=== PATIENT | female | born 1960 | race Caucasian/White ===

== ENCOUNTER → 2016-10-25 | Outpatient (CLI) | payer MEDICAID ==
[~2016-10-25] MED LIST: LISI-167 PO
== END | disposition home or self-care (01) ==
LOC: RAD 11:33
PROVIDERS: ATTEND Physician Assistant
DX: M47.893 Other spondylosis, cervicothoracic region (principal); Z98.1 Arthrodesis status
CPT/HCPCS: 72040

== ENCOUNTER → 2017-09-02 | Outpatient (CLI) | payer MEDICAID | END | disposition home or self-care (01) | LOC: RAD 10:27 | PROVIDERS: ATTEND Physician Assistant | DX: M43.12 Spondylolisthesis, cervical region (principal) | CPT/HCPCS: 72050 ==

== ENCOUNTER → 2017-09-09 | Outpatient (CLI) | payer MEDICAID | LOC: CFH 09:54 | PROVIDERS: ATTEND Physician Assistant Medical | DX: Z12.31 Encounter for screening mammogram for malignant neoplasm of breast (principal); N60.02 Solitary cyst of left breast | CPT/HCPCS: 77067 ==

== ENCOUNTER 2019-07-12 16:53 | Emergency (ER) | payer MEDICAID ==
[~2019-07-12] VITALS: Ht 170.2 cm; Wt 54.7 kg
[2019-07-12 17:12] VITALS: BP 146/101
[2019-07-12] MEDS ORDERED: METHOCARBAMOL 500 MG TABLET PO ONE (17:30)
[2019-07-12] MEDS ORDERED: METHOCARBAMOL 500 MG TABLET ONE (17:35)
--- NOTE | 2019-07-12 17:38 | NUR ---
PT HERE WITH C/O NECK PAIN. PT MEDICATED PER ORDER AND TAKEN TO RADIOLOGY.
--- NOTE | 2019-07-12 17:56 | NUR ---
PT BACK FROM RADIOLOGY.
--- NOTE | 2019-07-12 18:22 | NUR ---
Patient/Caregiver given discharge instructions and they have confirmed that they understand the instructions. Patient ambulatory with steady gait.
== END 2019-07-12 18:25 | disposition home or self-care (01) ==
LOC: ED 18:23
DX: S16.1XXA Strain of muscle, fascia and tendon at neck level, initial encounter (principal); M47.892 Other spondylosis, cervical region; I10 Essential (primary) hypertension; Z72.89 Other problems related to lifestyle; Z98.51 Tubal ligation status; Z87.891 Personal history of nicotine dependence; Z90.710 Acquired absence of both cervix and uterus; X58.XXXA Exposure to other specified factors, initial encounter; Y93.89 Activity, other specified; Y92.89 Other specified places as the place of occurrence of the external cause; Y99.8 Other external cause status
CPT/HCPCS: 72125; 99284

== ENCOUNTER 2020-09-06 08:47 | Emergency (ER) | payer MEDICAID ==
[~2020-09-06] VITALS: Ht 172.7 cm; Wt 52.3 kg
[2020-09-06] MEDS ORDERED: METOCLOPRAMIDE 5 MG/ML, 2ML IVPush ONE (09:30)
[2020-09-06] MEDS ORDERED: SODIUM CHLORIDE FLUSH 10ML SYR IVF ONE (09:30)
[2020-09-06] MEDS ORDERED: LORazepam 2 MG/ML, 1ML IVPush ONE (09:30)
[2020-09-06] MEDS ORDERED: LORazepam 2 MG/ML, 1ML ONE (09:41)
[2020-09-06] MEDS ORDERED: METOCLOPRAMIDE 5 MG/ML, 2ML ONE (09:44)
[2020-09-06 09:48] LABS: BASOPHILS % (AUTO) 1 % (0-1); EOSINOPHILS % (AUTO) 0 % (1-7); LYMPHOCYTES % (AUTO) 13 % (22-44); MEAN CORPUSCULAR HEMOGLOBIN 30.1 pg (27.0-34.8); MEAN CORPUSCULAR HGB CONC 33.7 g/dL (32.4-35.8); MONOCYTES % (AUTO) 5 % (2-9); NEUTROPHILS % (AUTO) 81 % (42-75); PLATELET COUNT 350 x10^3/uL (130-400); RED BLOOD COUNT 4.79 x10^6/uL (3.82-5.3); RED CELL DISTRIBUTION WIDTH 13.6 % (9.6-15.2)
[2020-09-06 09:49] LABS: MD NO
[2020-09-06 09:59] LABS: ALBUMIN 4.2 g/dL (3.4-5.0); ANION GAP 9 mmol/L (5-15); CALCIUM 9.7 mg/dL (8.5-10.1); CHLORIDE 106 mmol/L (98-107); CREATININE 0.59 mg/dL (0.55-1.02)
--- NOTE | 2020-09-06 10:00 | NUR ---
PT UPRIGHT ON GURNEY WITH EYES CLOSED FOR COMFORT, RESPONDS APPROP TO STAFF, COMFORT MEASURES PROVIDED, CALL LIGHT WITHIN REACH.
[2020-09-06 10:01] LABS: INTERNATIONAL NORMALIZED RATIO 1.11 (0.93-1.1); PROTHROMBIN TIME 11.9 Seconds (9.6-11.5)
[2020-09-06 10:53] VITALS: BP 138/88
--- NOTE | 2020-09-06 11:17 | NUR ---
Patient given discharge instructions and Rx, they have confirmed that they understand the instructions. Patient ambulatory with steady gait.
== END 2020-09-06 11:19 | disposition home or self-care (01) ==
LOC: ED 09:29
DX: F41.1 Generalized anxiety disorder (principal); R07.89 Other chest pain; R51.9 Headache, unspecified; M54.2 Cervicalgia; I10 Essential (primary) hypertension; R11.0 Nausea; Z88.0 Allergy status to penicillin; Z79.899 Other long term (current) drug therapy
CPT/HCPCS: 36415; 71045; 80048; 82040; 83880; 85025; 85610; 93005; 96374; 96375; 99285; J2060; J2765

== ENCOUNTER 2021-03-20 10:59 | Emergency (ER) | payer MEDICAID ==
[~2021-03-20] VITALS: Ht 170.2 cm; Wt 54.3 kg
--- NOTE | 2021-03-20 13:11 | NUR ---
REPORT TO JAZMYNE MERIDA.
--- NOTE | 2021-03-20 13:24 | NUR ---
PT. IS RESTING AT THIS TIME. VITALS MONITORED. PT. TO BE MEDICATED ORDERED.
[2021-03-20] MEDS ORDERED: HYDROmorphone 2 MG/ML, 1ML ONE (13:26)
[2021-03-20] MEDS ORDERED: HYDROmorphone 1 MG/ML, 1ML INJ IM ONE (13:30)
[2021-03-20] MEDS ORDERED: HYDROmorphone 2 MG/ML, 1ML IM ONE (13:30)
--- NOTE | 2021-03-20 14:27 | NUR ---
PT. REPORTS RELIEF FROM PAIN MEDS. VSS. PT. WAS AMBULATORY TO THE DISCHARGE DESK. PT. WAS GIVEN DISCHARGE INSTRUCTIONS AND SCRIPTS WITH UNDERSTANDING VERBALIZED ALONG WITH WILLINGNESS TO COMPLY.
[2021-03-20 14:29] VITALS: BP 140/95
== END 2021-03-20 14:32 | disposition home or self-care (01) ==
LOC: ED 11:31
DX: M54.31 Sciatica, right side (principal); M25.551 Pain in right hip; R20.2 Paresthesia of skin; I10 Essential (primary) hypertension; Z90.710 Acquired absence of both cervix and uterus
CPT/HCPCS: 72131; 72192; 96372; 99285; J1170